=== PATIENT | male | born 1950 | race Caucasian/White ===

== ENCOUNTER → 2017-05-10 | Outpatient (CLI) | payer OTHER ==
--- NOTE | 2017-05-10 13:17 | DIAGNOSTIC IMAGING REPORT ---
MRI OF THE LEFT SHOULDER CLINICAL HISTORY: Chronic left shoulder pain of 10 years duration. Decreased range of motion. COMPARISON STUDY: Progressive left shoulder dated 08/23/2016. TECHNIQUE: MRI of the left shoulder was performed utilizing various T1 and T2 weighted sequences in the axial, sagittal, coronal planes. IV contrast was not administered for this examination. FINDINGS: Rotator cuff: There is tendinopathy of the supraspinatus and intraspinous tendons. The tendons appear intact. Tendinopathy and partial-thickness tearing seen involving the subscapularis tendon. The teres minor is preserved. There is no subacromial or subdeltoid bursal fluid. Productive degenerative changes noted at the acromioclavicular articulation. Biceps tendon: There is mild tendinopathy of the long head of the biceps tendon. There is partial is tearing of the tendon as it passes deep to the subscapularis muscle. The tendon remains within the bicipital groove. The anchor is maintained. Labrum: There is circumferential labral tearing with maceration seen superiorly. Shoulder joint: There is a small joint effusion. The articular cartilage over the glenoid is well maintained. Arthritic change with subchondral cyst formation is present within the greater tuberosity of the humeral head. There is no MRI evidence of fracture. Musculature and soft tissues: The musculature of the shoulder is normal in bulk and signal intensity. No atrophy is seen. IMPRESSION: 1. There is circumferential labral tearing, greatest superiorly. 2. There is tendinopathy and partial-thickness tearing of the subscapularis tendon as well as the long head of the biceps tendon. 3. There is tendinopathy of the supraspinatus and intraspinous tendons without significant tearing seen. 4. Small joint effusion. 5. Arthritic change as above. Electronically signed by: Gregory Rios M.D. 05/10/2017 1:16 PM Dictated Date/Time: 05/10/2017 1:09 PM
== END | disposition home or self-care (01) ==
LOC: C.MRIBC 11:45
PROVIDERS: ATTEND Orthopaedic Surgery
DX: S46.912A Strain of unspecified muscle, fascia and tendon at shoulder and upper arm level, left arm, initial encounter (principal); S46.102A Unspecified injury of muscle, fascia and tendon of long head of biceps, left arm, initial encounter; X58.XXXA Exposure to other specified factors, initial encounter

== ENCOUNTER → 2017-07-19 | Day surgery (SDC) | payer OTHER ==
[2017-07-02 08:28] VITALS: Ht 182.9 cm; Wt 97.7 kg
[~2017-07-19] VITALS: Ht 182.9 cm; Wt 97.7 kg
[~2017-07-19] MED LIST: ASPI81TA28 PO; ATROPINE SULFATE 0.1 MG/ML 5ML SYR IV PRN; BUPIVACAINE/EPINEPHRINE 0.25% 1:200,000 30 ML VIAL ONE; CEFAZOLIN 2000MG IV PUSH 10 ML IV SCH; DEXAMETHASONE SOD INJ 4 MG/ML VIAL ONE; EpHEDrine SULFATE INJ 50 MG/ML AMP IV PRN; EpINEphrine INJ 1MG/ML AMP 1 MG/ML AMP ONE; FENTANYL CITRATE INJ 50 MCG/1 ML 2 ML VIAL IV PRN; FENTANYL CITRATE INJ 50 MCG/1 ML 2 ML VIAL ONE; FLUMAZENIL 0.1 MG/1 ML 10 ML VIAL IV PRN; HYDROmorphone INJ 2 MG/ML SYR/VIAL IV PRN; IBUP-1450 PO; KETO10TA PO; LABETALOL HCL IV 5 MG/ML 20ML IV PRN; LACTATED RINGER'S 1000ML 1,000 ML IV SCH; LIDOCAINE HCL 2% 2 ML VIAL (20MG/ML) ONE; MEPERIDINE HCL 25 MG/ML CARP IV PRN; MIDAZOLAM HCL 1 MG/ML 2ML VIAL ONE; MULT-506 PO; NALOXONE HCL 0.4 MG/1 ML VIAL/CARP IV PRN; ONDANSETRON INJ 2 MG/ML 2 ML VIAL IV PRN; ONDANSETRON INJ 2 MG/ML 2 ML VIAL ONE; OXYC-57 PO; OXYCODONE/ACETAMINOPHEN 5-325 TAB PO PRN; PHENYLEPHRINE 100MCG/ML 5ML SYR IV PRN; PROPOFOL IV EMULSION 10 MG/ML 20 ML VIAL IV ONE; ROPIVACAINE 0.5% 5 MG/ML 30 ML VIAL ONE; SIMV10TA2 PO; SODIUM CHLORIDE 0.9% 1000ML 1,000 ML IV SCH
--- NOTE | 2017-07-19 06:50 | History & Physical Bridge - [place] ---
H&P Re-Evaluation Bridge Note: I have examined the patient, reviewed the History & Physical and in the interval since the performance of the History & Physical I have noted the following changes of clinical significance: No changes noted
--- NOTE | 2017-07-19 10:46 | Discharge Instructions-SurgCtr ---
Discharge Instructions Date of Service Jul 19, 2017. Visit Reason for Visit: Shoulder Pain Discharge Discharge Diagnosis / Problem: SAME ABOVE Discharge Goals Goal(s): Decrease discomfort, Improve function Medications Stopped Medications Name(s): Ibuprofen-stopped 1 week ago. Restart Stopped Medication(s): MAY RESTART WHEN FINISHED WITH THE TORADOL TAKE TORADOL EVERY 8 HOURS WITH FOOD Activity Recommendations Activity Limitations: as noted below Lifting Limitations: gradually increase as tolerated Exercise/Sports Limitations: gradually increase as tolerated Shower/Bathe: tomorrow Driving or Machine Use: WHEN OUT OF THE SLING AND OFF OF PAIN MEDICATION Anesthesia . Post Anesthesia Instructions: If you have had General Anesthesia or IV Sedation: * Do not drive today. * Resume driving when surgeon permits. * Do not make important decisions or sign legal documents today. * Call surgeon for: 1. Temperature elevations greater than 101 degrees F. 2. Uncontrollable pain. 3. Excessive bleeding. 4. Persistent nausea and vomiting. 5. Medication intolerance (nausea, vomiting or rash). * For nausea and vomiting use only clear liquids such as: tea, soda, bouillon until nausea subsides, then gradually increase diet as tolerated. * If you have any concerns or questions, call your surgeon's office. If physician is unavailable and it is an emergency, call 911 or go to the nearest emergency room. . Instructions / Follow-Up Instructions / Follow-Up MEDICATIONS: * Resume previous medications unless instructed otherwise by your surgeon. * Always take pain medication on a full stomach or with food to avoid upset stomach. * Do not drink alcohol or drive while taking narcotics. * Ibuprofen or Tylenol may be taken if narcotic not needed. SPECIAL CARE INSTRUCTIONS: __ None _X_ Keep extremity elevated and iced x 48 hours; apply ice 20-30 minutes 8-10 times/day. May remove at night. _X_ Sling (WEAR FOR COMFORT ONLY) __24 hrs/day __ Remove at night __ Shoulder Immobilizer __ 24 hrs/day __ Remove at night _C_ Dressing __ Maintain until seen in office, may shower with plastic over site _X_ Remove dressings in 24-48 hours and then may shower _X_ Cover incisions with band-aids after showering __ Do not remove steri-strips Call physician if chills or temperature rises above 102 degrees or pain unrelieved by prescribed pain medications at . . Diet Recommendations Home Diet: no limitations Fluid Restriction: None Procedures Procedures Performed: Left Shoulder Arthroscopy, Subacromial Decompresiion, Distal Clavicle Resection Pending Studies Studies pending at discharge: no Work Instructions Return To Work: after follow-up Medical Emergencies . Who to Call and When: Medical Emergencies: If at any time you feel your situation is an emergency, please call 911 immediately. . Non-Emergent Contact Non-Emergency issues call your: Primary Care Provider Call Non-Emergent contact if: you have a fever, temperature is above 101.5 . . "Provider Documentation" section prepared by Darrell Flores. .
--- NOTE | 2017-07-19 11:36 | Anesthesia Progress Nt - [facility] ---
Anesthesia Post Op Note Date & Time Jul 19, 2017 at 11:36 Vital Signs Pain Intensity: 0 Vital Signs Past 12 Hours Date Time Temp Pulse Resp B/P (MAP) Pulse Ox O2 Delivery O2 Flow Rate FiO2 07/19/17 11:27 75 9 07/19/17 11:27 85 9 95 07/19/17 11:26 125/81 07/19/17 11:22 71 11 95 07/19/17 11:22 74 11 07/19/17 11:21 124/75 07/19/17 11:17 98 15 94 07/19/17 11:17 83 15 07/19/17 11:16 132/83 07/19/17 11:16 36.3 83 12 124/74 94 Room Air 07/19/17 11:12 82 9 07/19/17 11:12 81 9 93 07/19/17 11:11 140/89 07/19/17 11:07 96 14 96 07/19/17 11:07 94 14 07/19/17 11:06 138/83 07/19/17 11:02 87 12 97 07/19/17 11:02 86 12 07/19/17 11:01 130/84 07/19/17 10:57 85 18 07/19/17 10:57 89 18 97 07/19/17 10:56 128/88 07/19/17 10:52 90 17 96 07/19/17 10:52 90 17 07/19/17 10:51 143/89 07/19/17 10:50 36.5 90 12 133/86 96 Mask 6 07/19/17 10:48 133/86 07/19/17 10:47 97 18 96 07/19/17 10:47 97 18 07/19/17 09:47 95 07/19/17 09:47 93 41 98 07/19/17 09:46 110/69 07/19/17 09:46 110/69 07/19/17 09:45 93 07/19/17 09:45 93 07/19/17 09:45 92 18 97 07/19/17 09:45 92 18 97 07/19/17 09:41 112/76 07/19/17 09:41 112/76 07/19/17 09:40 91 07/19/17 09:40 90 17 99 07/19/17 09:40 90 17 99 07/19/17 09:40 91 07/19/17 09:36 122/70 07/19/17 09:36 122/70 07/19/17 09:35 92 07/19/17 09:35 93 18 99 07/19/17 09:35 93 18 99 07/19/17 09:35 92 07/19/17 09:31 122/75 07/19/17 09:31 122/75 07/19/17 09:30 95 07/19/17 09:30 95 07/19/17 09:30 93 16 98 07/19/17 09:30 93 16 98 07/19/17 09:27 124/80 07/19/17 09:27 124/80 07/19/17 09:25 93 07/19/17 09:25 93 07/19/17 09:25 94 17 99 07/19/17 09:25 94 17 99 07/19/17 09:21 129/87 07/19/17 09:21 129/87 07/19/17 09:20 89 24 99 07/19/17 09:20 89 07/19/17 09:20 89 07/19/17 09:20 89 24 99 07/19/17 09:17 106 13 134/82 (99) 96 Mask 6 07/19/17 09:16 150/74 07/19/17 09:16 150/74 07/19/17 09:15 101 07/19/17 09:15 101 13 134/82 98 07/19/17 09:15 101 07/19/17 09:15 101 13 134/82 98 07/19/17 09:10 80 0 96 07/19/17 09:10 80 0 96 07/19/17 09:10 81 07/19/17 09:10 81 07/19/17 09:05 85 07/19/17 09:05 84 0 96 07/19/17 09:05 84 0 96 07/19/17 09:05 85 07/19/17 09:00 94 0 95 07/19/17 09:00 96 07/19/17 09:00 96 07/19/17 09:00 94 0 95 07/19/17 08:55 107 0 07/19/17 08:55 107 0 07/19/17 08:50 91 0 07/19/17 08:50 91 0 07/19/17 07:33 36.9 88 16 138/85 (102) 97 Room Air Notes Mental Status: alert / awake / arousable, participated in evaluation Pt Amnestic to Procedure: Yes Nausea / Vomiting: adequately controlled Pain: adequately controlled Airway Patency, RR, SpO2: stable & adequate BP & HR: stable & adequate Hydration State: stable & adequate Anesthetic Complications: no major complications apparent
[2017-07-19 11:40] VITALS: TEMP 36.7
--- NOTE | 2017-07-19 11:53 | OPERATIVE REPORT ---
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 POSTOPERATIVE DIAGNOSIS: Severe external impingement, acromioclavicular joint arthritis and traumatic biceps tenotomy of the left shoulder. PROCEDURE: Left shoulder diagnostic arthroscopy with extensive debridement, distal clavicle resection, acromioplasty. SURGEON: Dr. Anshul Escalante. CAN WORKER: Martin Flores PA-C, whose assistance was necessary for positioning of the arm and helping with instrumentation. ANESTHESIA: General with a left interscalene nerve block. COMPLICATIONS: None. CONDITION: Stable to PACU. INDICATIONS: Arcadio is a pleasant 67-year-old male who presented to my office with a 3-4 year history of left shoulder pain. He does not recall any traumatic event. MRI and clinical examination were diagnostic for severe external impingement, AC joint arthritis. After failing conservative treatment, he elected to undergo arthroscopy. OPERATION AND FINDINGS: On 07/19/2017 he arrived at [facility] for the above procedure. He was seen in the preoperative holding area and the operative extremity was identified and signed. He was given a preoperative antibiotic and a left interscalene nerve block. He was taken back to the operating room, laid on the table in supine position and put under general anesthesia. He was then put into the beachchair position. Left shoulder was prepped and draped in sterile fashion. Time-out was done and the patient and operative extremity was properly identified. On preoperative physical examination, he had full range of motion of his shoulder and no signs of capsulitis. A scope was introduced in the posterior portal. Diagnostic arthroscopy showed no cartilage damage to the humeral head or the glenoid. The biceps tendon had been traumatically tenotomized and was a rather long biceps stump. There was some fraying of the anterior and superior labrum. The supraspinatus, infraspinatus, teres minor, and subscapularis were all checked and intact. An anterior portal was made and a shaver was used to do an extensive debridement of the shoulder. Significant time was spent debriding back the bicipital stump back to stable margins. Time was spent debriding the labrum in the anterior, superior and inferior aspects. Care was taken not to disrupt the cartilage or the rotator cuff. Once I was happy with the debridement the scope was placed in the subacromial space. A lateral portal was made. A shaver was used to do a complete subacromial and subdeltoid bursectomy and debridement. An ablator was used to tease the coracoacromial ligament off the undersurface of the acromion and a 5-0 gabbi was used to complete an acromioplasty of a very large Bigliani type 3 acromion. A shaver was used to remove any excess debris and attention was turned to the bursal side of the rotator cuff. It was examined extensively without any evidence of tear. Attention was then turned to the distal clavicle. Through an anterior portal, a shaver and ablator were used to skeletonize the distal clavicle. A 5-0 gabbi was then used to resect the distal 5 mm from the clavicle. Complete resection was checked under direct visualization. A shaver was used to remove any excess debris. Final diagnostic arthroscopy showed no additional pathology. Arthroscopic instruments were removed from the shoulder. Portal sites were closed with 3-0 nylon. He was then placed in a soft dressing and a left arm sling. He was then extubated, transferred to a litter and taken to the postanesthesia care unit in stable condition. He tolerated the procedure well. I attest to the content of the Intraoperative Record and any orders documented therein. Any exception s are noted below.
[2017-07-19 12:15] VITALS: BP 109/75; PULSE 82; O2SAT 94
--- NOTE | 2017-07-19 16:11 | [facility] Post Operative Brief Note ---
Immediate Operative Summary Operative Date Jul 19, 2017. Pre-Operative Diagnosis Left Shoulder Pain, Inflammation of Rotator Cuff Tendon Post-Operative Diagnosis Same Procedure(s) Performed Left Shoulder Arthroscopy, Subacromial Decompresiion, Distal Clavicle Resection Surgeon Dr. Escalante Test Automation Architect Surgeon(s) Mc Flores PA-C Estimated Blood Loss 5ml Findings as above Specimens None Complication(s) None Disposition Recovery Room / PACU
== END | disposition home or self-care (01) ==
LOC: X.SURG 07:00
PROVIDERS: ATTEND Orthopaedic Surgery
DX: M75.42 Impingement syndrome of left shoulder (principal); M19.012 Primary osteoarthritis, left shoulder; M75.22 Bicipital tendinitis, left shoulder; Z80.8 Family history of malignant neoplasm of other organs or systems